=== PATIENT | female | born 1985 | race Caucasian/White ===

== ENCOUNTER 2021-08-18 17:08 | Emergency (ER) | payer OTHER ==
[~2021-08-18] VITALS: Ht 162.6 cm; Wt 65.4 kg
--- NOTE | 2021-08-18 18:19 | RAD ---
AP chest x-ray HISTORY: Cough and congestion. Positive Covid infection. FINDINGS: Heart size normal. Mediastinal silhouette is normal. No pneumothorax, pulmonary opacities o r pleural effusions. Mild thoracic scoliosis. IMPRESSION: No acute process in the chest evident. Electronically signed by: Godwin Ayala MD (08/18/2021 6:17 PM) [facility]
[2021-08-18 19:30] LABS: BILIRUBIN,URINE NEG (NEG); CLARITY,URINE CLOUDY; COLOR,URINE YELLOW; GLUCOSE,URINE NEG (NEG); NITRITE,URINE NEG (NEG); RBC,URINE >40 /HPF (0-2); UROBILINOGEN,URINE 0.2 mg/dL (0.2 mg/dL)
[2021-08-18 20:10] LABS: SQUAMOUS EPITHELIAL CELL,UR FEW /LPF
[2021-08-18 20:11] LABS: BACTERIA,URINE FEW /HPF (0-FEW)
[2021-08-18] MEDS ORDERED: CEPH500C PO (20:42)
--- NOTE | 2021-08-18 20:42 | PHYS DOC ---
Past History Past Surgical History: , Other Additional Past Surgical Histo: abd lap for ectopic preg (GARCIA HERNANDEZ APRN) Alcohol Use: None (GARCIA HERNANDEZ APRN) Adult General Chief Complaint Chief Complaint: COUGH HPI HPI Patient is a 36-year-old female who presents to the emergency department with chief complaint of being sent here by her primary care physician's office to obtain a chest x-ray to rule out ongoing lung infection from her COVID-19 virus infection she came down with 2 weeks ago. Patient reports ongoing nonproductive cough, denies fever or chills, denies nausea, vomiting, diarrhea. Denies loss of taste or loss of smell. Patient denies other physical complaints or physical concerns. Patient reports she is 3 weeks and is breast-feeding. Patient denies her infant frustrating child being ill or having physical problems. Patient reports she has not had a menstrual periods since having her baby 3 weeks ago. (GARCIA HERNANDEZ APRN) Review of Systems Review of Systems 14 body systems of review of systems have been reviewed. See HPI for pertinent positives and negative responses, otherwise all other systems are negative, nonpertinent or noncontributory. Constitutional: Negative except as outlined in HPI above. Skin: Negative except as outlined in HPI above. Eyes: Negative except as outlined in HPI above. HENT: Negative except as outlined in HPI above. Respiratory: Negative except as outlined in HPI above. Cardiovascular: Negative except as outlined in HPI above. GI: Negative except as outlined in HPI above. : Negative except as outlined in HPI above. Musculoskeletal: Negative except as outlined in HPI above. Integument: Negative except as outlined in HPI above. Neurologic: Negative except as outlined in HPI above. Endocrine: Negative except as outlined in HPI above. Lymphatic: Negative except as outlined in HPI above. Psychiatric: Negative except as outlined in HPI above. (GARCIA HERNANDEZ APRN) Allergies Allergies Allergies Coded Allergies Type Severity Reaction Last Updated Verified No Known Drug Allergies 08/18/21 No (GARCIA HERNANDEZ APRN) Physical Exam Physical Exam Constitutional: Well developed, well nourished, no acute distress, non-toxic appearance. 36-year-old female in no apparent distress. HENT: Normocephalic, atraumatic. Eyes: Conjunctiva normal, no discharge. Neck: Normal range of motion, no stridor. Cardiovascular: No cyanosis appreciated, distal cap refill less than 2 seconds. Lungs & Thorax: Patient is in no respiratory distress, no audible adventitious lung sounds appreciated. Lung sounds clear to auscultate all lung desai, no adventitious lung sounds appreciated, normal work of breathing. Abdomen: Nontender, no abnormalities noted. Skin: Warm, dry, no erythema, no rash. Back: No tenderness, no deformities. Extremities: No tenderness, no cyanosis, no clubbing, ROM intact, no edema. Neurologic: Alert and oriented X 3, normal motor function, normal sensory function, no focal deficits noted. Psychologic: Affect normal, judgement normal, mood normal. (GARCIA HERNANDEZ APRN) Current Patient Data Vital Signs Vital Signs Date Time Temp Pulse Resp B/P (MAP) Pulse Ox O2 Delivery O2 Flow Rate FiO2 08/18/21 18:20 95 20 115/77 (90) 97 Room Air 08/18/21 17:30 98.6 Lab Results Laboratory Tests Test 08/18/21 18:34 08/18/21 18:36 Urine Collection Type Unknown Urine Color Yellow Urine Clarity Cloudy Urine pH 6.5 Urine Specific [place] 1.020 Urine Protein Trace (NEG-TRACE) Urine Glucose (UA) Neg mg/dL (NEG) Urine Ketones (Stick) 15 mg/dL (NEG) Urine Blood Large (NEG) Urine Nitrite Neg (NEG) Urine Bilirubin Neg (NEG) Urine Urobilinogen Dipstick 0.2 mg/dL (0.2 mg/dL) Urine Leukocyte Esterase Trace (NEG) Urine RBC >40 /HPF (0-2) Urine WBC 5-10 /HPF (0-4) Urine Squamous Epithelial Cells Few /LPF Urine Bacteria Few /HPF (0-FEW) POC Urine HCG, Qualitative hcg negative (Negative) (GARCIA HERNANDEZ APRN) EKG EKG [] (GARCIA HERNANDEZ APRN) Radiology/Procedures Radiology/Procedures [] (GARCIA HERNANDEZ APRN) Heart Score C/O Chest Pain: No Risk Factors: Risk Factors: DM, Current or recent (<one month) smoker, HTN, HLP, family history of CAD, obesity. Risk Scores: Risk Factors: DM, Current or recent (<one month) smoker, HTN, HLP, family history of CAD, obesity. (GARCIA HERNANDEZ APRN) Course & Med Decision Making Course & Med Decision Making Pertinent Labs and Imaging studies reviewed. (See chart for details) 36-year-old female, vital signs reviewed, presents emergency department requesting a chest x-ray to evaluate her ongoing COVID-19 symptoms. Patient's physical examination is unremarkable. Will order chest x-ray. Patient's chest x-ray unremarkable, not concerning for acute pulmonary process, discussed findings with patient, patient states she now has new complaints and thinks she might have a kidney infection as she does have low back pain and lower abdominal pain like her last kidney infection, reevaluation of the patient did not reveal CVA tenderness to palpation. Patient denies vaginal discharge or vaginal bleeding. Will obtain urinalysis assay, test. Patient is not , her urine is infected. Discussed findings with patient, urinary tract infection with hematuria. Will start on Keflex 500 twice daily x7 days. Discussed side effects of medication while breast-feeding, strict follow-up with primary care for reevaluation of urinary tract infection while breast-feeding, patient is amenable to ED discharge planning. Discussed with the patient all findings and diagnostic testing as well as the need to follow-up with their primary care provider for further evaluation and treatment or return to the ED if any new or worsening symptoms. Strict return precautions were also discussed at length, the patient voiced understanding and agreement with the discharge planning. The patient was nontoxic in appearance, in no apparent distress, and hemodynamically stable at the time of disposition. (GARCIA HERNANDEZ APRN) Course & Med Decision Making Did not see or evaluate patient. 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 Agree with STEEL SHOT HEADER OPERATOR's work-up and disposition per note. (ZANDRA HUNTER MD) Dragon Disclaimer Dragon Disclaimer This electronic medical record was generated, in whole or in part, using a voice recognition dictation system. (GARCIA HERNANDEZ APRN) Departure Departure: Impression: Primary Impression: UTI (urinary tract infection) Disposition: HOME / SELF CARE / HOMELESS Condition: GOOD Referrals: LEE MACHUCA MD (PCP) Patient Instructions: Urinary Tract Infection Additional Instructions: You were seen today in the emergency department to have a chest x-ray performed related to your ongoing COVID-19 virus symptoms. Your chest x-ray was clear and did not show any concerning signs of pulmonary infection. You did complain of low back pain and low abdomen pain and were worried of a kidney infection. Your urine did show signs of infection. I am starting you on a antibiotic that you will take twice a day for the next 7 days. This is safe for your baby while you are breast-feeding however you may notice your baby might have some looser stool than normal while taking the antibiotic. This is normal. Please follow- up with your primary care doctor as we discussed for reevaluation of your urinary tract infection type signs and symptoms. Return to the emergency department for worsening symptoms or other concerns. Thank you for visiting our Emergency Department. It was a pleasure taking care of you today in the emergency department and we appreciate you trusting us with your care. If any additional problems come up don't hesitate to return to visit us. Please follow up with your primary care provider so they can plan additional care if needed and know about the problem that you had. If symptoms worsen come back to the Emergency Department. Any concerning symptoms that start such as chest pain, shortness of air, weakness or numbness on one side of the body, running high fevers or any other concerning symptoms return to the ER. Scripts Cephalexin (KEFLEX) 500 Mg Capsule 1 CAP PO BID for uti for 7 Days, #14 CAP 0 Refills Prov: GARCIA HERNANDEZ APRN 08/18/21 Problem Qualifiers Primary Impression: UTI (urinary tract infection) Urinary tract infection type: site unspecified Hematuria presence: with hematuria Qualified Codes: N39.0 - Urinary tract infection, site not specified; R31.9 - Hematuria, unspecified GARCIA HERNANDEZ APRN Aug 18, 2021 20:42 ZANDRA HUNTER MD Aug 18, 2021 21:08
[2021-08-18 20:45] VITALS: BP 126/85
== END 2021-08-18 20:53 | disposition home or self-care (01) ==
LOC: ER 17:08
DX: O90.89 Other complications of the puerperium, not elsewhere classified (principal); N39.0 Urinary tract infection, site not specified; R31.9 Hematuria, unspecified; Z98.890 Other specified postprocedural states
CPT/HCPCS: 71045; 81001; 81025; 87086; 99284